=== PATIENT | female | born 1945 | race African-American/Black ===

== ENCOUNTER 2017-06-30 16:29 | Emergency (ER) | payer MEDICARE, MEDICAID ==
[~2017-06-30] VITALS: Ht 160 cm; Wt 55.0 kg
[~2017-06-30 16:29] MED LIST: ASPI-1159 PO; CLOP75TA16 PO; CYAN250T12 PO; FURO20TA4 PO; GABA800T97 PO; ISOS60TA4 PO; METO25TA6 PO; MULT-1146 PO; PRAV40TA58 PO
[2017-07-01] MEDS ORDERED: LIDOCAINE HCL 1% 20ML VIAL (Pyxis) INJ MC ONE (01:45)
[2017-07-01] MEDS ORDERED: BACITRACIN ZINC OINT UDPKT TOP ONE (01:45)
[2017-07-01] MEDS ORDERED: TETANUS, DIPHTHERIA, PERTUSSIS VAC/PF 0.5ML (>7YR OLD) IM ONE (01:45)
[2017-07-01] MEDS ORDERED: TRAMADOL 50MG TABLET PO ONE (04:30)
[2017-07-01 06:13] VITALS: BP 132/83
== END 2017-07-01 06:26 | disposition home or self-care (01) ==
LOC: ER 17:19
DX: S90.451A Superficial foreign body, right great toe, initial encounter (principal); I10 Essential (primary) hypertension; X58.XXXA Exposure to other specified factors, initial encounter; Y93.89 Activity, other specified; Y92.89 Other specified places as the place of occurrence of the external cause; Y99.8 Other external cause status
CPT/HCPCS: 10120; 73660; 90471; 90715; 99284; J3490; 20520; 28190

== ENCOUNTER 2019-08-06 12:25 | Inpatient (IN) | payer MEDICARE, MEDICAID ==
[~2019-08-06] VITALS: Ht 162.6 cm; Wt 61.2 kg
[~2019-08-06 12:25] MED LIST changes: -ASPI-1159 PO; +ASPI-1393 PO; -CLOP75TA16 PO; +CLOP75TA4 PO
[2019-08-06] MEDS ORDERED: SODIUM CHLORIDE 0.9% 500 ML IV ONE (13:45)
[2019-08-06] MEDS ORDERED: ACETAMINOPHEN 325MG TABLET PO ONE (13:45)
[2019-08-06 14:36] LABS: EOSINOPHILS % 3.1 % (0.0-5.0); HEMATOCRIT. 33.6 % (36.0-48.0); HEMOGLOBIN. 11.1 g/dL (12.0-16.0); LYMPHOCYTES % 21.9 % (20.0-50.0); MEAN CORPUSCULAR HEMOGLOBIN 30.4 pg (28.0-32.0); MEAN CORPUSCULAR VOLUME 92.3 fL (81.0-99.0); MEAN PLATELET VOLUME 7.6 fl (7.4-10.4); MONOCYTES % 10.5 % (2.0-8.0); NEUTROPHILS % 63.5 % (40.0-76.0); PLATELET 229 x1000/uL (130-400); RED BLOOD CELL COUNT 3.64 mill/uL (4.2-5.4); RED CELL DISTRIBUTION WIDTH 14.5 % (11.6-14.6)
[2019-08-06 14:39] LABS: CHLORIDE 104 mEq/L (98-107); INR 1.1; PROTHROMBIN TIME 11.1 sec (9.6-11.0)
[2019-08-06 16:01] LABS: HEPATITIS B SURFACE ANTIGEN NEGATIVE
[2019-08-06 16:31] LABS: HEPATITIS A AB IGM NEGATIVE (NEGATIVE)
[2019-08-06 19:30] VITALS: BP 116/61
[2019-08-06 20:00] VITALS: BP 113/55
[2019-08-06] MEDS ORDERED: GUAIFENESIN 200MG/10ML SUGAR FREE UDC PO PRN (20:00)
[2019-08-06] MEDS ORDERED: NITROGLYCERIN 0.4MG TABLET SL SL PRN (20:00)
[2019-08-06] MEDS ORDERED: ONDANSETRON HCL 4MG/2ML INJ IV PRN (20:00)
[2019-08-06] MEDS ORDERED: IPRATROPIUM/ALBUTEROL 0.5-3(2.5)MG/3ML NEB NEB PRN (20:00)
[2019-08-06] MEDS ORDERED: MAGNESIUM/ALUMINUM HYDROXIDE/SIMETHICONE 30ML UDC PO PRN (20:00)
[2019-08-06] MEDS ORDERED: ZOLPIDEM TARTRATE 5MG TABLET PO PRN (20:00)
[2019-08-06] MEDS ORDERED: NA PHOS,M-B/NA PHOS,DI-BA ENEMA 118ML PR PRN (20:00)
[2019-08-06] MEDS ORDERED: DOCUSATE SODIUM 100MG CAPSULE PO PRN (20:00)
[2019-08-06] MEDS ORDERED: ACETAMINOPHEN 325MG TABLET PO PRN (20:00)
[2019-08-06 21:11] LABS: FOLIC ACID (FOLATE) SERUM > 20.00 ng/mL (>5.38)
[2019-08-06 21:21] LABS: VITAMIN B12 SERUM 740 pg/mL (211-911)
[2019-08-06] MEDS: ENOXAPARIN 30MG/0.3ML SYR SUBCUT SCH (21:32)
[2019-08-06] MEDS: TRAMADOL 50MG TABLET PO PRN (21:33)
[2019-08-06] MEDS: SODIUM CHLORIDE 0.9% 1,000 ML IV SCH (21:33)
[2019-08-06] MEDS: FAMOTIDINE 20MG TABLET PO SCH (21:33)
[2019-08-06] MEDS: LACTULOSE 20G/30ML UDC PO SCH (21:34)
[2019-08-06 23:56] LABS: CREATINE KINASE 43 IU/L (26-192); CREATINE KINASE MB FRACTION < 1.0 ng/mL (0.5-3.6)
[2019-08-07] VITALS: BP 161/56
[2019-08-07] MEDS: CLONIDINE 0.1MG TABLET PO PRN (01:08)
[2019-08-07 02:09] LABS: CLARITY URINE CLEAR (CLEAR); COLOR URINE YELLOW (YELLOW); KETONES URINE NEGATIVE (NEGATIVE); LEUKOCYTE ESTERASE URINE NEGATIVE (NEGATIVE); NITRITE URINE NEGATIVE (NEGATIVE); OCCULT BLOOD URINE NEGATIVE (NEGATIVE); PH URINE 5.5 (4.5-8.0); PROTEIN URINE TRACE (NEGATIVE); UROBILINOGEN URINE 0.2 E.U./dL (0.2-1.0)
[2019-08-07 02:50] LABS: *AMPHETAMINES SCREEN URINE NEGATIVE (NEGATIVE); *BARBITURATES SCREEN URINE NEGATIVE (NEGATIVE)
[2019-08-07 02:51] LABS: *BENZODIAZEPINES SCREEN URINE NEGATIVE (NEGATIVE); *COCAINE SCREEN URINE NEGATIVE (NEGATIVE); METHADONE URINE SCREEN NEGATIVE (NEGATIVE); OPIATES URINE SCREEN PRESUMTIVE POSITIVE (NEGATIVE); PHENCYCLIDINE URINE SCREEN NEGATIVE (NEGATIVE)
[2019-08-07 02:52] LABS: CANNABINOID URINE SCREEN PRESUMTIVE POSITIVE (NEGATIVE)
[2019-08-07 04:00] VITALS: BP 98/49
[2019-08-07] MEDS: TRAMADOL 50MG TABLET PO PRN ×2 (04:40→20:37)
[2019-08-07 06:13] LABS: CREATINE KINASE 41 IU/L (26-192)
[2019-08-07 06:14] LABS: CREATINE KINASE MB FRACTION < 1.0 ng/mL (0.5-3.6)
[2019-08-07] MEDS: LACTULOSE 20G/30ML UDC PO SCH ×3 (06:20→20:33)
[2019-08-07 08:00] VITALS: BP 118/51
[2019-08-07] MEDS: FAMOTIDINE 20MG TABLET PO SCH (09:00)
[2019-08-07] MEDS: CLOPIDOGREL 75MG TABLET PO SCH (09:00)
[2019-08-07] MEDS: SODIUM CHLORIDE 0.9% 1,000 ML IV SCH (09:01)
[2019-08-07] MEDS: KETOROLAC 15MG/ML VIAL IV PRN (11:43)
[2019-08-07 12:00] VITALS: BP 110/37
[2019-08-07 16:01] VITALS: BP 96/63
[2019-08-07 20:00] VITALS: BP 158/68
[2019-08-07] MEDS: ENOXAPARIN 30MG/0.3ML SYR SUBCUT SCH (20:33)
[2019-08-08] VITALS: BP 135/63
[2019-08-08] MEDS: SODIUM CHLORIDE 0.9% 1,000 ML IV SCH ×2 (00:57→13:00)
[2019-08-08 04:00] VITALS: BP 163/53
[2019-08-08] MEDS: CLONIDINE 0.1MG TABLET PO PRN (05:14)
[2019-08-08] MEDS: LACTULOSE 20G/30ML UDC PO SCH ×3 (05:15→22:25)
[2019-08-08 08:00] VITALS: BP 159/54
[2019-08-08] MEDS: CLOPIDOGREL 75MG TABLET PO SCH (09:55)
[2019-08-08 12:00] VITALS: BP 148/58
[2019-08-08] MEDS: FAMOTIDINE 20MG TABLET PO SCH (13:44)
[2019-08-08] MEDS: TRAMADOL 50MG TABLET PO PRN (15:36)
[2019-08-08 16:00] VITALS: BP 178/54
[2019-08-08 20:00] VITALS: BP 123/56
[2019-08-08] MEDS: ENOXAPARIN 30MG/0.3ML SYR SUBCUT SCH (22:25)
[2019-08-08] MEDS: KETOROLAC 15MG/ML VIAL IV PRN (22:39)
[2019-08-09] VITALS: BP 153/56
[2019-08-09] MEDS: SODIUM CHLORIDE 0.9% 1,000 ML IV SCH ×3 (01:41→22:30)
[2019-08-09 04:00] VITALS: BP 177/60
[2019-08-09] MEDS: CLONIDINE 0.1MG TABLET PO PRN ×2 (04:28→13:02)
[2019-08-09] MEDS: LACTULOSE 20G/30ML UDC PO SCH ×3 (06:22→22:30)
[2019-08-09 08:00] VITALS: BP_SYST 112; BP_SYST 160; BP_DIAS 64
[2019-08-09] MEDS: FAMOTIDINE 20MG TABLET PO SCH (09:47)
[2019-08-09] MEDS: CLOPIDOGREL 75MG TABLET PO SCH (09:47)
[2019-08-09] MEDS: TRAMADOL 50MG TABLET PO PRN ×2 (09:51→22:41)
[2019-08-09 12:00] VITALS: BP 163/63
[2019-08-09] MEDS: KETOROLAC 15MG/ML VIAL IV PRN (13:02)
[2019-08-09 16:00] VITALS: BP 136/47
[2019-08-09 20:00] VITALS: BP 131/43
[2019-08-09] MEDS: ENOXAPARIN 30MG/0.3ML SYR SUBCUT SCH (22:30)
[2019-08-10] VITALS: BP 155/62
[2019-08-10 04:00] VITALS: BP 150/57
[2019-08-10] MEDS: LACTULOSE 20G/30ML UDC PO SCH ×2 (06:00→14:00)
[2019-08-10 08:00] VITALS: BP 150/60
[2019-08-10] MEDS: FAMOTIDINE 20MG TABLET PO SCH (09:45)
[2019-08-10] MEDS: CLOPIDOGREL 75MG TABLET PO SCH (09:45)
[2019-08-10 12:00] VITALS: BP 160/88
[2019-08-10 14:09] VITALS: BP 150/60
[2019-08-10] MEDS ORDERED: SENN-178 PO (14:51)
== END 2019-08-10 16:15 | disposition home health service (06) | DRG 684 ==
LOC: ER 12:25 → 7WST 17:46 → EDBEDREQ 17:51 → ENRESERV 18:05
PROVIDERS: ADMIT Internal Medicine; ATTEND Internal Medicine
DX: N17.9 Acute kidney failure, unspecified (principal); R07.89 Other chest pain; K74.60 Unspecified cirrhosis of liver; J45.909 Unspecified asthma, uncomplicated; D63.8 Anemia in other chronic diseases classified elsewhere; I25.10 Atherosclerotic heart disease of native coronary artery without angina pectoris; E78.00 Pure hypercholesterolemia, unspecified; I11.0 Hypertensive heart disease with heart failure; I50.9 Heart failure, unspecified; Z79.899 Other long term (current) drug therapy; Z79.82 Long term (current) use of aspirin; Z95.1 Presence of aortocoronary bypass graft
CPT/HCPCS: 36415; 71045; 74176; 80061; 80076; 80305; 81003; 82140; 82248; 82550; 82553; 82607; 82746; 83036; 83540; 83550; 84484; 85651; 86705; 86709; 86803; 87340; 93005; 93306; 93970; 97116; 97162; 97166; 99285; J1650; J1885; J7030; J7040

== ENCOUNTER 2019-09-10 08:04 | Inpatient (IN) | payer MEDICARE, MEDICAID ==
[~2019-09-10] VITALS: Ht 160 cm; Wt 53.5 kg
[~2019-09-10 08:04] MED LIST changes: -FURO20TA4 PO; +SENN-178 PO
[2019-09-10] MEDS ORDERED: SODIUM CHLORIDE 0.9% 1,000 ML IV ONE (08:35)
[2019-09-10 08:49] LABS: BASOPHILS % 0.6 % (0.0-2.0); EOSINOPHILS % 0.9 % (0.0-5.0); HEMATOCRIT. 31.8 % (36.0-48.0); HEMOGLOBIN. 10.7 g/dL (12.0-16.0); LYMPHOCYTES % 8.9 % (20.0-50.0); MEAN CORPUSCULAR HEMOGLOBIN 29.9 pg (28.0-32.0); MEAN CORPUSCULAR VOLUME 88.5 fL (81.0-99.0); MEAN PLATELET VOLUME 7.6 fl (7.4-10.4); MONOCYTES % 13.4 % (2.0-8.0); NEUTROPHILS % 76.2 % (40.0-76.0); PLATELET 377 x1000/uL (130-400); RED CELL DISTRIBUTION WIDTH 13.3 % (11.6-14.6)
[2019-09-10 08:52] LABS: CHLORIDE 92 mEq/L (98-107)
[2019-09-10 14:40] VITALS: BP 177/82
[2019-09-10] MEDS ORDERED: ZOLPIDEM TARTRATE 5MG TABLET PO PRN (15:45)
[2019-09-10] MEDS ORDERED: ACETAMINOPHEN 325MG TABLET PO PRN (15:45)
[2019-09-10] MEDS ORDERED: CLONIDINE 0.2MG TABLET PO PRN (15:45)
[2019-09-10 16:00] VITALS: BP 166/86
[2019-09-10] MEDS: SODIUM CHLORIDE 0.45% 1,000 ML IV SCH (17:19)
[2019-09-10] MEDS: ENOXAPARIN 30MG/0.3ML SYR SUBCUT SCH (17:21)
[2019-09-10 20:00] VITALS: BP 153/99
[2019-09-10] MEDS: METOPROLOL TARTRATE 25MG TABLET PO SCH (21:41)
[2019-09-10] MEDS: HYDROCODONE/ACETAMINOPHEN 5/325MG TABLET PO PRN (21:43)
[2019-09-11] VITALS: BP 146/69
[2019-09-11] MEDS: HYDROCODONE/ACETAMINOPHEN 5/325MG TABLET PO PRN ×4 (03:03→21:42)
[2019-09-11 04:00] VITALS: BP 148/48
[2019-09-11] MEDS: SODIUM CHLORIDE 0.45% 1,000 ML IV SCH ×2 (07:01→23:54)
[2019-09-11 08:00] VITALS: BP 162/62
[2019-09-11] MEDS: AMLODIPINE 10MG TABLET PO SCH (08:40)
[2019-09-11] MEDS: METOPROLOL TARTRATE 25MG TABLET PO SCH (08:40)
[2019-09-11] MEDS: OMEPRAZOLE 20MG CAPSULE EXTENDED RELEASE PO SCH (08:40)
[2019-09-11] MEDS: ENOXAPARIN 30MG/0.3ML SYR SUBCUT SCH (08:41)
[2019-09-11 11:04] LABS: CHLORIDE 93 mEq/L (98-107)
[2019-09-11 11:08] LABS: BASOPHILS % 0.7 % (0.0-2.0); EOSINOPHILS % 3.4 % (0.0-5.0); HEMATOCRIT. 30.7 % (36.0-48.0); HEMOGLOBIN. 10.1 g/dL (12.0-16.0); MEAN CORPUSCULAR HEMOGLOBIN 29.5 pg (28.0-32.0); MEAN CORPUSCULAR VOLUME 89.4 fL (81.0-99.0); MEAN PLATELET VOLUME 7.9 fl (7.4-10.4); MONOCYTES % 9.9 % (2.0-8.0); PLATELET 361 x1000/uL (130-400); RED BLOOD CELL COUNT 3.44 mill/uL (4.2-5.4); RED CELL DISTRIBUTION WIDTH 13.2 % (11.6-14.6)
[2019-09-11 12:00] VITALS: BP 117/57
[2019-09-11] MEDS ORDERED: EZET10TA13 PO (12:20)
[2019-09-11] MEDS ORDERED: GABA-533 PO (12:20)
[2019-09-11] MEDS ORDERED: FURO20TA4 PO (12:20)
[2019-09-11] MEDS ORDERED: NIFE90TA34 MT (12:20)
[2019-09-11 16:00] VITALS: BP 154/60
[2019-09-11 20:00] VITALS: BP 173/80
[2019-09-12 00:05] VITALS: BP 94/48
[2019-09-12] MEDS: HYDROCODONE/ACETAMINOPHEN 5/325MG TABLET PO PRN ×2 (03:12→09:00)
[2019-09-12 04:00] VITALS: BP 118/46
[2019-09-12 08:00] VITALS: BP 167/77
[2019-09-12] MEDS: OMEPRAZOLE 20MG CAPSULE EXTENDED RELEASE PO SCH (08:13)
[2019-09-12 08:33] LABS: BASOPHILS % 0.5 % (0.0-2.0); EOSINOPHILS % 2.7 % (0.0-5.0); HEMOGLOBIN. 9.5 g/dL (12.0-16.0); LYMPHOCYTES % 16.5 % (20.0-50.0); MEAN CORPUSCULAR HEMOGLOBIN 29.1 pg (28.0-32.0); MEAN CORPUSCULAR VOLUME 88.8 fL (81.0-99.0); MONOCYTES % 11.5 % (2.0-8.0); NEUTROPHILS % 68.8 % (40.0-76.0); PLATELET 376 x1000/uL (130-400); RED BLOOD CELL COUNT 3.27 mill/uL (4.2-5.4); RED CELL DISTRIBUTION WIDTH 13.4 % (11.6-14.6)
[2019-09-12] MEDS: AMLODIPINE 10MG TABLET PO SCH (09:01)
[2019-09-12] MEDS: METOPROLOL TARTRATE 25MG TABLET PO SCH (09:01)
[2019-09-12] MEDS: ENOXAPARIN 30MG/0.3ML SYR SUBCUT SCH (09:02)
[2019-09-12] MEDS: SODIUM CHLORIDE 0.45% 1,000 ML IV SCH (09:04)
[2019-09-12 12:00] VITALS: BP 127/58
[2019-09-12 13:35] VITALS: BP 127/56
== END 2019-09-12 15:30 | disposition home health service (06) | DRG 640 ==
LOC: ER 08:04 → 7WST 11:25 → ENRESERV 13:35
PROVIDERS: ADMIT Internal Medicine; ATTEND Internal Medicine
DX: E86.0 Dehydration (principal); N17.0 Acute kidney failure with tubular necrosis; E46 Unspecified protein-calorie malnutrition; I11.0 Hypertensive heart disease with heart failure; I25.10 Atherosclerotic heart disease of native coronary artery without angina pectoris; I50.9 Heart failure, unspecified; F41.9 Anxiety disorder, unspecified; J45.909 Unspecified asthma, uncomplicated; K21.9 Gastro-esophageal reflux disease without esophagitis; Z95.1 Presence of aortocoronary bypass graft; Z79.82 Long term (current) use of aspirin; Z79.899 Other long term (current) drug therapy; Z85.89 Personal history of malignant neoplasm of other organs and systems; Z87.440 Personal history of urinary (tract) infections; Z68.20 Body mass index [BMI] 20.0-20.9, adult
CPT/HCPCS: 36415; 71045; 80048; 83880; 84484; 93005; 99285; J1650; J7030

== ENCOUNTER 2020-02-11 09:48 | Inpatient (IN) | payer MEDICARE, MEDICAID ==
[~2020-02-11] VITALS: Ht 160 cm; Wt 54.4 kg
[~2020-02-11 09:48] MED LIST changes: -ASPI-1393 PO; +ASPI-1497 PO; +EZET10TA13 PO; +FURO20TA4 PO; +GABA-533 PO; +NIFE90TA60 MT
[2020-02-11] MEDS ORDERED: SODIUM CHLORIDE 0.9% 1,000 ML IV ONE (10:18)
[2020-02-11 11:10] LABS: BASOPHILS % 0.9 % (0.0-2.0); EOSINOPHILS % 4.2 % (0.0-5.0); HEMATOCRIT. 32.2 % (36.0-48.0); HEMOGLOBIN. 10.8 g/dL (12.0-16.0); LYMPHOCYTES % 32.9 % (20.0-50.0); MEAN CORPUSCULAR HEMOGLOBIN 31.3 pg (28.0-32.0); MEAN CORPUSCULAR VOLUME 93.3 fL (81.0-99.0); MEAN PLATELET VOLUME 7.5 fl (7.4-10.4); MONOCYTES % 12.8 % (2.0-8.0); NEUTROPHILS % 49.2 % (40.0-76.0); PLATELET 198 x1000/uL (130-400); RED BLOOD CELL COUNT 3.45 mill/uL (4.2-5.4); RED CELL DISTRIBUTION WIDTH 15.1 % (11.6-14.6)
[2020-02-11 11:18] LABS: PROTHROMBIN TIME 11.1 sec (9.6-11.0)
[2020-02-11 11:19] LABS: CHLORIDE 93 mEq/L (98-107)
[2020-02-11 11:21] LABS: ETHANOL BLOOD < 10 mg/dL
[2020-02-11 12:12] LABS: CLARITY URINE CLEAR (CLEAR); COLOR URINE YELLOW (YELLOW); KETONES URINE NEGATIVE (NEGATIVE); LEUKOCYTE ESTERASE URINE NEGATIVE (NEGATIVE); NITRITE URINE NEGATIVE (NEGATIVE); OCCULT BLOOD URINE NEGATIVE (NEGATIVE); PROTEIN URINE NEGATIVE (NEGATIVE); SPECIFIC GRAVITY URINE 1.008 (1.005-1.030); UROBILINOGEN URINE 0.2 E.U./dL (0.2-1.0)
[2020-02-11] MEDS ORDERED: ASPIRIN 325MG EC TABLET PO ONE (13:30)
[2020-02-11] MEDS ORDERED: ENOXAPARIN 40MG/0.4ML SYR SUBCUT SCH (17:45)
[2020-02-11] MEDS ORDERED: GUAIFENESIN 200MG/10ML SUGAR FREE UDC PO PRN (17:45)
[2020-02-11] MEDS ORDERED: ONDANSETRON HCL 4MG/2ML INJ IV PRN (17:45)
[2020-02-11] MEDS ORDERED: MAGNESIUM/ALUMINUM HYDROXIDE/SIMETHICONE 30ML UDC PO PRN (17:45)
[2020-02-11] MEDS ORDERED: ACETAMINOPHEN 650MG/20.3ML UDC GT PRN (17:45)
[2020-02-11] MEDS ORDERED: ACETAMINOPHEN 650MG SUPP PR PRN ×2 (17:45)
[2020-02-11] MEDS ORDERED: DOCUSATE SODIUM 100MG CAPSULE PO PRN (17:45)
[2020-02-11 20:30] VITALS: BP 114/57
[2020-02-11 21:00] VITALS: BP 114/57
[2020-02-11] MEDS: METOPROLOL TARTRATE 25MG TABLET PO SCH (21:24)
[2020-02-11] MEDS: SODIUM CHLORIDE 0.9% INJ 3ML FLUSH IVF SCH (21:25)
[2020-02-11] MEDS: ENOXAPARIN 30MG/0.3ML SYR SUBCUT SCH (21:34)
[2020-02-11] MEDS: SODIUM CHLORIDE 0.9% 1,000 ML IV SCH (21:34)
[2020-02-11] MEDS ORDERED: OXYC20TA41 PO (23:51)
[2020-02-12] VITALS: BP 125/64
[2020-02-12 04:00] VITALS: BP 157/71
[2020-02-12] MEDS: SODIUM CHLORIDE 0.9% INJ 3ML FLUSH IVF SCH ×3 (05:07→21:20)
[2020-02-12 06:15] LABS: EOSINOPHILS % 4.7 % (0.0-5.0); HEMATOCRIT. 30.6 % (36.0-48.0); HEMOGLOBIN. 10.4 g/dL (12.0-16.0); LYMPHOCYTES % 30.5 % (20.0-50.0); MEAN CORPUSCULAR HEMOGLOBIN 31.4 pg (28.0-32.0); MEAN CORPUSCULAR VOLUME 92.6 fL (81.0-99.0); MONOCYTES % 13.8 % (2.0-8.0); PLATELET 176 x1000/uL (130-400); RED BLOOD CELL COUNT 3.31 mill/uL (4.2-5.4); RED CELL DISTRIBUTION WIDTH 15.2 % (11.6-14.6)
[2020-02-12 06:34] LABS: CHLORIDE 106 mEq/L (98-107)
[2020-02-12 06:50] LABS: HDL CHOLESTEROL 119 mg/dL (40-59)
[2020-02-12 06:53] LABS: LDL CHOLESTEROL 76 mg/dL (5-100)
[2020-02-12 07:44] VITALS: BP 152/74
[2020-02-12] MEDS: ISOSORBIDE MONONITRATE 30MG TABLET SR 24HR PO SCH (10:06)
[2020-02-12] MEDS: SENNOSIDES 8.6MG TABLET PO SCH ×2 (10:07→16:35)
[2020-02-12] MEDS: METOPROLOL TARTRATE 25MG TABLET PO SCH ×2 (10:07→21:19)
[2020-02-12] MEDS: GABAPENTIN 400MG CAPSULE PO SCH ×2 (10:07→16:35)
[2020-02-12] MEDS: ASPIRIN 81MG EC TABLET PO SCH (10:07)
[2020-02-12] MEDS: CLOPIDOGREL 75MG TABLET PO SCH (10:07)
[2020-02-12] MEDS: SODIUM CHLORIDE 0.9% 1,000 ML IV SCH (10:08)
[2020-02-12] MEDS ORDERED: REGADENOSON 0.4 MG/5 ML IV ONE (11:45)
[2020-02-12 12:00] VITALS: BP 135/72
[2020-02-12] MEDS: CLONIDINE 0.1MG TABLET PO PRN (15:46)
[2020-02-12 16:00] VITALS: BP 166/75
[2020-02-12] MEDS: MORPHINE SULFATE 2 MG/ML CPJ (NOT FOR IM USE) IV PRN (16:35)
[2020-02-12] MEDS ORDERED: ENOXAPARIN 40MG/0.4ML SYR SUBCUT SCH (18:00)
[2020-02-12 20:00] VITALS: BP 126/54
[2020-02-12] MEDS: ENOXAPARIN 30MG/0.3ML SYR SUBCUT SCH (21:20)
[2020-02-13] VITALS: BP 171/76
[2020-02-13] MEDS: CLONIDINE 0.1MG TABLET PO PRN (00:15)
[2020-02-13] MEDS: SODIUM CHLORIDE 0.9% 1,000 ML IV SCH (02:13)
[2020-02-13 04:00] VITALS: BP 187/82
[2020-02-13] MEDS: SODIUM CHLORIDE 0.9% INJ 3ML FLUSH IVF SCH ×2 (04:56→14:00)
[2020-02-13 08:00] VITALS: BP 167/76
[2020-02-13] MEDS: CLOPIDOGREL 75MG TABLET PO SCH (10:07)
[2020-02-13] MEDS: ASPIRIN 81MG EC TABLET PO SCH (10:08)
[2020-02-13] MEDS: METOPROLOL TARTRATE 25MG TABLET PO SCH (10:08)
[2020-02-13] MEDS: GABAPENTIN 400MG CAPSULE PO SCH ×2 (10:08→16:24)
[2020-02-13] MEDS: SENNOSIDES 8.6MG TABLET PO SCH ×2 (10:08→16:24)
[2020-02-13] MEDS: ISOSORBIDE MONONITRATE 30MG TABLET SR 24HR PO SCH (10:08)
[2020-02-13] MEDS ORDERED: REGADENOSON 0.4 MG/5 ML IV ONE (10:55)
[2020-02-13 16:00] VITALS: BP 126/65
[2020-02-13] MEDS: MORPHINE SULFATE 2 MG/ML CPJ (NOT FOR IM USE) IV PRN (16:46)
[2020-02-13 17:27] VITALS: BP 126/65
== END 2020-02-13 22:50 | disposition home health service (06) | DRG 641 ==
LOC: ER 10:09 → 6WST 13:36 → ENRESERV 19:04
PROVIDERS: ADMIT Family Medicine; ATTEND Family Medicine
DX: E86.0 Dehydration (principal); R33.9 Retention of urine, unspecified; E87.1 Hypo-osmolality and hyponatremia; K59.00 Constipation, unspecified; I50.9 Heart failure, unspecified; I11.0 Hypertensive heart disease with heart failure; I25.10 Atherosclerotic heart disease of native coronary artery without angina pectoris; R07.89 Other chest pain; N28.9 Disorder of kidney and ureter, unspecified; F41.9 Anxiety disorder, unspecified; J45.909 Unspecified asthma, uncomplicated; E78.5 Hyperlipidemia, unspecified; Z85.89 Personal history of malignant neoplasm of other organs and systems; Z91.041 Radiographic dye allergy status; Z79.82 Long term (current) use of aspirin; Z79.899 Other long term (current) drug therapy; Z95.1 Presence of aortocoronary bypass graft; Z87.440 Personal history of urinary (tract) infections; Z85.810 Personal history of malignant neoplasm of tongue
CPT/HCPCS: 36415; 78452; 80053; 80061; 80320; 81003; 84484; 85025; 92610; 93005; 93017; 93306; 99285; A9500; J1650; J2270; J2785; J7030; G0480

== ENCOUNTER 2020-02-14 17:19 | Emergency (ER) | payer MEDICARE, MEDICAID ==
[~2020-02-14] VITALS: Ht 157.5 cm; Wt 52.0 kg
[~2020-02-14 17:19] MED LIST changes: +OXYC20TA41 PO
[2020-02-14 18:29] LABS: BASOPHILS % 0.7 % (0.0-2.0); EOSINOPHILS % 4.7 % (0.0-5.0); HEMATOCRIT. 34.1 % (36.0-48.0); HEMOGLOBIN. 11.5 g/dL (12.0-16.0); LYMPHOCYTES % 32.7 % (20.0-50.0); MEAN CORPUSCULAR HEMOGLOBIN 31.7 pg (28.0-32.0); MEAN CORPUSCULAR VOLUME 93.8 fL (81.0-99.0); MEAN PLATELET VOLUME 7.6 fl (7.4-10.4); MONOCYTES % 11.7 % (2.0-8.0); NEUTROPHILS % 50.2 % (40.0-76.0); PLATELET 208 x1000/uL (130-400); RED BLOOD CELL COUNT 3.63 mill/uL (4.2-5.4); RED CELL DISTRIBUTION WIDTH 15.5 % (11.6-14.6)
[2020-02-14 18:35] LABS: CHLORIDE 101 mEq/L (98-107)
[2020-02-14 18:39] LABS: PROTHROMBIN TIME 10.7 sec (9.6-11.0)
[2020-02-14 19:16] LABS: CLARITY URINE CLEAR (CLEAR); COLOR URINE YELLOW (YELLOW); KETONES URINE NEGATIVE (NEGATIVE); LEUKOCYTE ESTERASE URINE TRACE (NEGATIVE); NITRITE URINE NEGATIVE (NEGATIVE); OCCULT BLOOD URINE 3+ (NEGATIVE); PROTEIN URINE NEGATIVE (NEGATIVE); SPECIFIC GRAVITY URINE 1.005 (1.005-1.030); UROBILINOGEN URINE 0.2 E.U./dL (0.2-1.0)
[2020-02-14] MEDS ORDERED: CEFTRIAXONE 1 G PREMIX 50 ML IV ONE (19:30)
[2020-02-15 10:06] VITALS: BP 140/70
== END 2020-02-15 10:45 | disposition home or self-care (01) ==
LOC: ER 17:19
DX: N39.0 Urinary tract infection, site not specified (principal); I10 Essential (primary) hypertension; K76.9 Liver disease, unspecified; Z85.9 Personal history of malignant neoplasm, unspecified; Z91.041 Radiographic dye allergy status
CPT/HCPCS: 36415; 80053; 81003; 83690; 85025; 85610; 85730; 86850; 86900; 86901; 96365; 96366; 99285; J0696

== ENCOUNTER 2020-03-12 20:38 | Emergency (ER) | payer MEDICARE, MEDICAID ==
[~2020-03-12] VITALS: Ht 160 cm; Wt 49.0 kg
[2020-03-12] MEDS ORDERED: IBUPROFEN 600MG TABLET PO ONE (21:45)
[2020-03-13 09:18] VITALS: BP 147/67
== END 2020-03-13 09:20 | disposition home or self-care (01) ==
LOC: ER 20:38
DX: G62.9 Polyneuropathy, unspecified (principal); I11.0 Hypertensive heart disease with heart failure; I50.9 Heart failure, unspecified; Z85.9 Personal history of malignant neoplasm, unspecified; Z79.899 Other long term (current) drug therapy
CPT/HCPCS: 99283

== ENCOUNTER 2020-03-24 20:06 | Emergency (ER) | payer MEDICARE, MEDICAID ==
[~2020-03-24] VITALS: Ht 160 cm; Wt 52.0 kg
[2020-03-24] MEDS ORDERED: SODIUM CHLORIDE 0.9% 1,000 ML IV ONE (22:40)
[2020-03-24] MEDS ORDERED: ACETAMINOPHEN 325MG TABLET PO STA (22:40)
[2020-03-24] MEDS ORDERED: ONDANSETRON HCL 4MG/2ML INJ IV STA (22:40)
[2020-03-24 23:26] LABS: CHLORIDE 89 mEq/L (98-107)
[2020-03-24 23:27] LABS: BASOPHILS % 0.8 % (0.0-2.0); EOSINOPHILS % 2.4 % (0.0-5.0); HEMATOCRIT. 29.3 % (36.0-48.0); HEMOGLOBIN. 10.3 g/dL (12.0-16.0); LYMPHOCYTES % 15.9 % (20.0-50.0); MEAN CORPUSCULAR VOLUME 91.7 fL (81.0-99.0); MEAN PLATELET VOLUME 7.4 fl (7.4-10.4); MONOCYTES % 13.5 % (2.0-8.0); NEUTROPHILS % 67.4 % (40.0-76.0); PLATELET 291 x1000/uL (130-400); RED CELL DISTRIBUTION WIDTH 14.1 % (11.6-14.6)
[2020-03-24 23:30] LABS: ETHANOL BLOOD < 10 mg/dL
[2020-03-25] MEDS ORDERED: LEVOFLOXACIN 750MG PREMIX 150 ML IV ONE
[2020-03-25] MEDS ORDERED: ASPIRIN 300MG SUPP PR ONE (00:30)
[2020-03-25 02:13] LABS: CLARITY URINE CLEAR (CLEAR); COLOR URINE YELLOW (YELLOW); KETONES URINE NEGATIVE (NEGATIVE); LEUKOCYTE ESTERASE URINE NEGATIVE (NEGATIVE); NITRITE URINE NEGATIVE (NEGATIVE); OCCULT BLOOD URINE NEGATIVE (NEGATIVE); PH URINE 6.5 (4.5-8.0); PROTEIN URINE NEGATIVE (NEGATIVE); SPECIFIC GRAVITY URINE 1.006 (1.005-1.030)
[2020-03-25 03:28] LABS: *AMPHETAMINES SCREEN URINE NEGATIVE (NEGATIVE); *BARBITURATES SCREEN URINE NEGATIVE (NEGATIVE); *BENZODIAZEPINES SCREEN URINE NEGATIVE (NEGATIVE); *COCAINE SCREEN URINE NEGATIVE (NEGATIVE); METHADONE URINE SCREEN NEGATIVE (NEGATIVE); OPIATES URINE SCREEN PRESUMTIVE POSITIVE (NEGATIVE)
[2020-03-25 03:29] LABS: CANNABINOID URINE SCREEN NEGATIVE (NEGATIVE); PHENCYCLIDINE URINE SCREEN NEGATIVE (NEGATIVE)
[2020-03-25] MEDS ORDERED: ACETAMINOPHEN 650MG SUPP PR PRN (07:45)
[2020-03-25] MEDS ORDERED: LORAZEPAM 0.5MG TABLET PO PRN (07:45)
[2020-03-25] MEDS ORDERED: GUAIFENESIN 200MG/10ML SUGAR FREE UDC PO PRN (07:45)
[2020-03-25] MEDS ORDERED: DOCUSATE SODIUM 100MG CAPSULE PO PRN (07:45)
[2020-03-25] MEDS ORDERED: MAGNESIUM/ALUMINUM HYDROXIDE/SIMETHICONE 30ML UDC PO PRN (07:45)
[2020-03-25] MEDS ORDERED: ACETAMINOPHEN 325MG TABLET PO PRN ×2 (07:45)
[2020-03-25] MEDS ORDERED: ACETAMINOPHEN 650MG/20.3ML UDC GT PRN ×2 (07:45)
[2020-03-25] MEDS ORDERED: SODIUM CHLORIDE 0.9% 1,000 ML IV SCH (08:00)
[2020-03-25] MEDS: ENOXAPARIN 40MG/0.4ML SYR SUBCUT SCH (10:19)
[2020-03-25 12:17] LABS: HEMATOCRIT. 31.4 % (36.0-48.0); HEMOGLOBIN. 10.9 g/dL (12.0-16.0); MEAN CORPUSCULAR VOLUME 92.3 fL (81.0-99.0); MEAN PLATELET VOLUME 7.3 fl (7.4-10.4); PLATELET 308 x1000/uL (130-400); RED CELL DISTRIBUTION WIDTH 13.4 % (11.6-14.6)
[2020-03-25 12:23] LABS: CHLORIDE 98 mEq/L (98-107)
[2020-03-25 12:41] LABS: INR 1.2; PROTHROMBIN TIME 12.4 sec (9.6-11.0)
[2020-03-25 13:15] LABS: PLATELET ESTIMATE NORMAL
[2020-03-25] MEDS: GABAPENTIN 400MG CAPSULE PO SCH (17:15)
[2020-03-25] MEDS: SENNOSIDES 8.6MG TABLET PO SCH (17:16)
[2020-03-25] MEDS: HYDROCODONE/ACETAMINOPHEN 10/325MG TABLET PO PRN ×2 (17:19→22:03)
[2020-03-25] MEDS: CLONIDINE 0.1MG TABLET PO PRN (20:17)
[2020-03-25] MEDS ORDERED: EZETIMIBE 10MG TABLET PO SCH (21:00)
[2020-03-26] MEDS: CLONIDINE 0.1MG TABLET PO PRN (03:34)
[2020-03-26 04:05] LABS: BASOPHILS % 0.8 % (0.0-2.0); EOSINOPHILS % 2.4 % (0.0-5.0); HEMATOCRIT. 30.7 % (36.0-48.0); HEMOGLOBIN. 10.4 g/dL (12.0-16.0); LYMPHOCYTES % 19.9 % (20.0-50.0); MEAN CORPUSCULAR HEMOGLOBIN 31.2 pg (28.0-32.0); MEAN CORPUSCULAR VOLUME 92.2 fL (81.0-99.0); MEAN PLATELET VOLUME 7.4 fl (7.4-10.4); MONOCYTES % 13.9 % (2.0-8.0); PLATELET 300 x1000/uL (130-400); RED BLOOD CELL COUNT 3.33 mill/uL (4.2-5.4); RED CELL DISTRIBUTION WIDTH 13.4 % (11.6-14.6)
[2020-03-26 04:12] LABS: CHLORIDE 101 mEq/L (98-107)
[2020-03-26 04:18] LABS: PHOSPHORUS 2.9 mg/dL (2.5-4.9)
[2020-03-26 04:19] LABS: LDL CHOLESTEROL 73 mg/dL (5-100)
[2020-03-26 04:20] LABS: HDL CHOLESTEROL 94 mg/dL (40-59)
[2020-03-26] MEDS: GABAPENTIN 400MG CAPSULE PO SCH (09:00)
[2020-03-26] MEDS ORDERED: ISOSORBIDE MONONITRATE 60MG TABLET SR 24HR PO SCH (09:00)
[2020-03-26] MEDS ORDERED: ASPIRIN 81MG EC TABLET PO SCH (09:00)
[2020-03-26] MEDS ORDERED: CLOPIDOGREL 75MG TABLET PO SCH (09:00)
[2020-03-26] MEDS: ENOXAPARIN 40MG/0.4ML SYR SUBCUT SCH (09:00)
[2020-03-26] MEDS: SENNOSIDES 8.6MG TABLET PO SCH (09:00)
[2020-03-26 10:29] LABS: SODIUM URINE RANDOM 28 mEq/L
[2020-03-26 12:16] VITALS: BP 153/57
[2020-03-26] MEDS ORDERED: ALBUTEROL (0.083%) 2.5MG/3ML NEB HHN NR (13:15)
[2020-03-26] MEDS ORDERED: ALBUTEROL (0.083%) 2.5MG/3ML NEB HHN SCH (18:00)
== END 2020-03-26 14:18 | disposition short-term general hospital (02) ==
LOC: ER 20:06 → EDBEDREQ 03-25 00:14 → EDBEDREQDT 03-25 00:14 → EDBEDREQTM 03-25 00:14 → ER 03-26 14:18 → CANBEDREQ 03-26 14:25
DX: R51 Headache (principal); I25.10 Atherosclerotic heart disease of native coronary artery without angina pectoris; Z95.1 Presence of aortocoronary bypass graft; J44.9 Chronic obstructive pulmonary disease, unspecified; I73.9 Peripheral vascular disease, unspecified; I12.9 Hypertensive chronic kidney disease with stage 1 through stage 4 chronic kidney disease, or unspecified chronic kidney disease; N18.2 Chronic kidney disease, stage 2 (mild); E78.5 Hyperlipidemia, unspecified; F11.10 Opioid abuse, uncomplicated; E44.0 Moderate protein-calorie malnutrition; E87.1 Hypo-osmolality and hyponatremia; Z88.8 Allergy status to other drugs, medicaments and biological substances; Z92.3 Personal history of irradiation; Z11.59 Encounter for screening for other viral diseases; Z79.01 Long term (current) use of anticoagulants; Z79.82 Long term (current) use of aspirin; Z92.21 Personal history of antineoplastic chemotherapy; Z79.899 Other long term (current) drug therapy; Z85.810 Personal history of malignant neoplasm of tongue
CPT/HCPCS: 36415; 70450; 71045; 80053; 80061; 80320; 82533; 83735; 83935; 84100; 84300; 84443; 84484; 85025; 93005; 99285; C9803; J2405; J7030; G0480

== ENCOUNTER 2020-11-22 19:23 | Emergency (ER) | payer OTHER, MEDICAID ==
[~2020-11-22] VITALS: Ht 157.5 cm; Wt 55.0 kg
[~2020-11-22 19:23] MED LIST changes: +CLOP-31 PO; -CLOP75TA4 PO; -ISOS60TA4 PO; +ISOS60TA76 PO
[2020-11-22 20:29] LABS: HEMATOCRIT. 40.1 % (36.0-48.0); HEMOGLOBIN. 13.1 g/dL (12.0-16.0); LYMPHOCYTES % 34.4 % (20.0-50.0); MEAN CORPUSCULAR HEMOGLOBIN 30.6 pg (28.0-32.0); MEAN CORPUSCULAR VOLUME 93.6 fL (81.0-99.0); MEAN PLATELET VOLUME 7.5 fl (7.4-10.4); MONOCYTES % 9.3 % (2.0-8.0); NEUTROPHILS % 51.3 % (40.0-76.0); PLATELET 253 x1000/uL (130-400); RED BLOOD CELL COUNT 4.28 mill/uL (4.2-5.4); RED CELL DISTRIBUTION WIDTH 14.5 % (11.6-14.6)
[2020-11-22 20:33] LABS: CHLORIDE 100 mEq/L (98-107)
[2020-11-22 20:40] LABS: INR 1.1; PARTIAL THROMBOPLASTIN TIME 25.4 sec (23.4-31.0); PROTHROMBIN TIME 11.3 sec (9.6-11.0)
[2020-11-22] MEDS ORDERED: IBUPROFEN 400MG TABLET PO ONE (21:45)
[2020-11-22 21:46] VITALS: BP 142/66
[2020-12-12] MEDS ORDERED: GUAI600T26 MT (12:21)
== END 2020-11-22 22:43 | disposition home or self-care (01) ==
LOC: ER 19:23
DX: F23 Brief psychotic disorder (principal); R51.9 Headache, unspecified; I25.10 Atherosclerotic heart disease of native coronary artery without angina pectoris; F17.210 Nicotine dependence, cigarettes, uncomplicated; Z85.810 Personal history of malignant neoplasm of tongue; Z90.710 Acquired absence of both cervix and uterus; Z95.1 Presence of aortocoronary bypass graft; Z91.041 Radiographic dye allergy status
CPT/HCPCS: 36415; 80053; 85025; 93005; 99285

== ENCOUNTER 2021-01-12 12:23 | Emergency (ER) | payer MEDICARE, MEDICAID ==
[~2021-01-12] VITALS: Ht 162.6 cm; Wt 58.0 kg
[~2021-01-12 12:23] MED LIST changes: +GUAI600T26 MT
[2021-01-12 13:07] LABS: HEMATOCRIT. 35.4 % (36.0-48.0); HEMOGLOBIN. 11.7 g/dL (12.0-16.0); LYMPHOCYTES % 30.7 % (20.0-50.0); MEAN CORPUSCULAR HEMOGLOBIN 31.7 pg (28.0-32.0); MEAN CORPUSCULAR VOLUME 96.1 fL (81.0-99.0); MEAN PLATELET VOLUME 7.8 fl (7.4-10.4); MONOCYTES % 10.9 % (2.0-8.0); NEUTROPHILS % 54.4 % (40.0-76.0); PLATELET 199 x1000/uL (130-400); RED BLOOD CELL COUNT 3.68 mill/uL (4.2-5.4)
[2021-01-12 13:35] LABS: CHLORIDE 109 mEq/L (98-107)
[2021-01-12 13:40] LABS: ETHANOL BLOOD 30 mg/dL
[2021-01-12] MEDS ORDERED: METOCLOPRAMIDE HCL 10MG/2ML VIAL IV ONE (14:00)
[2021-01-12] MEDS ORDERED: KETOROLAC 30MG/ML VIAL IV ONE (14:00)
[2021-01-12 14:04] LABS: CLARITY URINE CLEAR (CLEAR); COLOR URINE YELLOW (YELLOW); KETONES URINE NEGATIVE (NEGATIVE); LEUKOCYTE ESTERASE URINE NEGATIVE (NEGATIVE); NITRITE URINE NEGATIVE (NEGATIVE); OCCULT BLOOD URINE NEGATIVE (NEGATIVE); PROTEIN URINE NEGATIVE (NEGATIVE); SPECIFIC GRAVITY URINE 1.007 (1.005-1.030); UROBILINOGEN URINE 0.2 E.U./dL (0.2-1.0)
[2021-01-12 14:19] LABS: *AMPHETAMINES SCREEN URINE NEGATIVE (NEGATIVE); *BARBITURATES SCREEN URINE NEGATIVE (NEGATIVE); *BENZODIAZEPINES SCREEN URINE NEGATIVE (NEGATIVE)
[2021-01-12 14:20] LABS: *COCAINE SCREEN URINE NEGATIVE (NEGATIVE); CANNABINOID URINE SCREEN NEGATIVE (NEGATIVE); METHADONE URINE SCREEN NEGATIVE (NEGATIVE); OPIATES URINE SCREEN NEGATIVE (NEGATIVE); PHENCYCLIDINE URINE SCREEN NEGATIVE (NEGATIVE)
[2021-01-12 15:00] VITALS: BP 130/78
== END 2021-01-12 16:07 | disposition home or self-care (01) ==
LOC: ER 12:23
DX: F10.129 Alcohol abuse with intoxication, unspecified (principal); Y90.1 Blood alcohol level of 20-39 mg/100 ml; R41.82 Altered mental status, unspecified; I10 Essential (primary) hypertension; Z85.9 Personal history of malignant neoplasm, unspecified; Z95.1 Presence of aortocoronary bypass graft; Z79.82 Long term (current) use of aspirin
CPT/HCPCS: 36415; 70450; 71045; 80053; 80305; 80320; 81003; 82962; 85025; 96374; 96375; 99285; J1885; J2765; G0480

== ENCOUNTER 2021-12-17 12:29 | Emergency (ER) | payer MEDICARE, MEDICAID ==
[~2021-12-17] VITALS: Ht 157.5 cm; Wt 46.0 kg
[~2021-12-17 12:29] MED LIST changes: -GABA-533 PO
[2021-12-17 14:23] LABS: BASOPHILS % 0.5 % (0.0-2.0); EOSINOPHILS % 8.8 % (0.0-5.0); HEMATOCRIT. 30.6 % (36.0-48.0); HEMOGLOBIN. 10.3 g/dL (12.0-16.0); LYMPHOCYTES % 15.9 % (20.0-50.0); MEAN CORPUSCULAR HEMOGLOBIN 30.8 pg (28.0-32.0); MEAN CORPUSCULAR VOLUME 91.9 fL (81.0-99.0); MONOCYTES % 9.8 % (2.0-8.0); PLATELET 263 x1000/uL (130-400); RED BLOOD CELL COUNT 3.33 mill/uL (4.2-5.4); RED CELL DISTRIBUTION WIDTH 14.3 % (11.6-14.6)
[2021-12-17 14:32] LABS: CHLORIDE 103 mEq/L (98-107)
[2021-12-17 14:39] LABS: ETHANOL BLOOD < 10 mg/dL
[2021-12-17] MEDS ORDERED: SODIUM CHLORIDE 0.9% 1,000 ML IV ONE (15:00)
[2021-12-17] MEDS ORDERED: DIPHENHYDRAMINE 50MG/ML VIAL IV ONE (15:00)
[2021-12-17 16:41] LABS: CLARITY URINE CLEAR (CLEAR); COLOR URINE YELLOW (YELLOW); KETONES URINE NEGATIVE (NEGATIVE); LEUKOCYTE ESTERASE URINE TRACE (NEGATIVE); NITRITE URINE NEGATIVE (NEGATIVE); OCCULT BLOOD URINE NEGATIVE (NEGATIVE); PH URINE 5.5 (4.5-8.0); PROTEIN URINE 3+ (NEGATIVE); SPECIFIC GRAVITY URINE 1.012 (1.005-1.030); UROBILINOGEN URINE 0.2 E.U./dL (0.2-1.0)
[2021-12-17 16:54] LABS: *AMPHETAMINES SCREEN URINE NEGATIVE (NEGATIVE); *BARBITURATES SCREEN URINE NEGATIVE (NEGATIVE)
[2021-12-17 16:55] LABS: *BENZODIAZEPINES SCREEN URINE NEGATIVE (NEGATIVE); *COCAINE SCREEN URINE NEGATIVE (NEGATIVE); CANNABINOID URINE SCREEN NEGATIVE (NEGATIVE); METHADONE URINE SCREEN NEGATIVE (NEGATIVE); OPIATES URINE SCREEN NEGATIVE (NEGATIVE); PHENCYCLIDINE URINE SCREEN NEGATIVE (NEGATIVE)
[2021-12-17] MEDS ORDERED: CEFP200T13 MT (17:42)
[2021-12-17] MEDS ORDERED: CEFTRIAXONE 1 G PREMIX 50 ML IV ONE (17:45)
[2021-12-17 19:05] VITALS: BP 125/90
== END 2021-12-17 19:14 | disposition home or self-care (01) ==
LOC: ER 12:29
DX: L81.9 Disorder of pigmentation, unspecified (principal); I10 Essential (primary) hypertension; Z79.899 Other long term (current) drug therapy; Z91.041 Radiographic dye allergy status; Z79.82 Long term (current) use of aspirin; Z98.890 Other specified postprocedural states
CPT/HCPCS: 36415; 80053; 80305; 80307; 80320; 80329; 81003; 85025; 96361; 96365; 96375; 99284; J0696; J1200; G0480

== ENCOUNTER 2022-08-16 18:29 | Emergency (ER) | payer MEDICARE, MEDICAID ==
[~2022-08-16] VITALS: Ht 152.4 cm; Wt 50.0 kg
[~2022-08-16 18:29] MED LIST changes: +CEFP200T13 MT
[2022-08-16 21:15] VITALS: BP 101/66
== END 2022-08-16 21:24 | disposition left against medical advice (07) ==
LOC: ER 18:29
DX: R51.9 Headache, unspecified (principal); M79.606 Pain in leg, unspecified; L29.9 Pruritus, unspecified
CPT/HCPCS: 99283

== ENCOUNTER 2023-04-11 12:34 | Emergency (ER) | payer MEDICARE, MEDICAID ==
[~2023-04-11] VITALS: Ht 160 cm; Wt 50.0 kg
[2023-04-11 13:09] VITALS: BP 116/59; PULSE 86; RESP 20; TEMP 98; O2SAT 100
[2023-04-11 17:01] LABS: CLARITY URINE CLEAR (CLEAR); COLOR URINE YELLOW (YELLOW); KETONES URINE NEGATIVE (NEGATIVE); LEUKOCYTE ESTERASE URINE TRACE (NEGATIVE); NITRITE URINE NEGATIVE (NEGATIVE); OCCULT BLOOD URINE NEGATIVE (NEGATIVE); PROTEIN URINE 3+ (NEGATIVE); SPECIFIC GRAVITY URINE 1.016 (1.005-1.030); UROBILINOGEN URINE 0.2 E.U./dL (0.2-1.0)
[2023-04-11] MEDS ORDERED: [UNRECOGNIZED DRUG - CODE] VG (17:40)
== END 2023-04-11 17:52 | disposition home or self-care (01) ==
LOC: ER 12:34
DX: N89.8 Other specified noninflammatory disorders of vagina (principal); J44.1 Chronic obstructive pulmonary disease with (acute) exacerbation; I11.0 Hypertensive heart disease with heart failure; I50.9 Heart failure, unspecified; Z91.041 Radiographic dye allergy status; Z79.899 Other long term (current) drug therapy
CPT/HCPCS: 81003; 99283

== ENCOUNTER 2024-02-03 13:17 | Emergency (ER) | payer MEDICARE, MEDICAID ==
[~2024-02-03] VITALS: Ht 160 cm; Wt 50.0 kg
[~2024-02-03 13:17] MED LIST changes: -EZET10TA13 PO; +EZET10TA81 PO; -SENN-178 PO; +SENN-371 PO; +[UNRECOGNIZED DRUG - CODE] VG
[2024-02-03 13:19] VITALS: O2SAT 100
[2024-02-03] MEDS: ACETAMINOPHEN 500MG TABLET PO ONE (14:33)
[2024-02-03] MEDS ORDERED: LIDO700A15 TP (15:49)
[2024-02-03] MEDS ORDERED: TOPUD MT (15:49)
[2024-02-03 16:40] VITALS: BP 118/70; PULSE 80; RESP 18; TEMP 98.5
== END 2024-02-03 19:51 | disposition home or self-care (01) ==
LOC: ER 13:17
DX: G89.29 Other chronic pain (principal); M54.50 Low back pain, unspecified; I11.0 Hypertensive heart disease with heart failure; I50.9 Heart failure, unspecified; Z88.8 Allergy status to other drugs, medicaments and biological substances; Z79.899 Other long term (current) drug therapy; Z98.890 Other specified postprocedural states; Z79.82 Long term (current) use of aspirin
CPT/HCPCS: 99284